=== PATIENT | female | born 1940 | race Hispanic/Latino ===

== ENCOUNTER 2017-10-23 23:00 | Inpatient (IN) | payer MEDICARE ==
[~2017-10-23] VITALS: Ht 154.9 cm; Wt 113.4 kg
[2017-10-23 23:47] LABS: BASOPHILS % 0.1 % (0.0-1.0); EOSINOPHILS # (AUTO) 0.2 (0.0-0.4); LYMPHOCYTES # (AUTO) 1.1 (1.0-3.2); LYMPHOCYTES % 16.7 % (18.0-39.1); MEAN CORPUSCULAR HEMOGLOBIN 25.1 pg (28-32); MEAN CORPUSCULAR HGB CONC 28.3 g/dL (31-35); MEAN CORPUSCULAR VOLUME 88.7 fL (81-99); MONOCYTES # (AUTO) 0.7 (0.2-0.8); MONOCYTES % 10.5 % (4.4-11.3); NEUTROPHILS # (AUTO) 4.7 (2.1-6.9); NEUTROPHILS % 69.1 % (38.7-80.0); PLATELET COUNT 235 x10e3/uL (140-360); RED BLOOD COUNT 2.31 x10e6/uL (3.6-5.1); RED CELL DISTRIBUTION WIDTH 16.3 % (11.7-14.4)
[2017-10-23 23:50] LABS: HEMATOCRIT 20.5 % (34.2-44.1); HEMOGLOBIN 5.8 g/dL (12.0-16.0)
[2017-10-23 23:58] LABS: INR 1.1; PROTHROMBIN TIME 13.4 seconds (11.9-14.5)
[2017-10-23 23:59] LABS: PARTIAL THROMBOPLASTIN TIME 29.2 seconds (23.8-35.5)
[2017-10-24] VITALS (7 sets, daily range): BP systolic 114–141; BP diastolic 58–79
[2017-10-24] MEDS ORDERED: SODIUM CHLORIDE 0.9% 250ML 250 ML IV ONE
[2017-10-24] MEDS ORDERED: FUROSEMIDE INJ 10 MG/ML 2 ML VIAL IV PRN
[2017-10-24 00:08] LABS: ALANINE AMINOTRANSFERASE 9 IU/L (0-55); ALBUMIN 3.3 g/dL (3.5-5.0); ALKALINE PHOSPHATASE 116 IU/L (40-150); ANION GAP 15.5 mmol/L (8-16); BLOOD UREA NITROGEN 52 mg/dL (7-26); BUN/CREATININE RATIO 24 (6-25); CALCIUM 9.1 mg/dL (8.4-10.2); CARBON DIOXIDE 21 mmol/L (22-29); CHLORIDE 109 mmol/L (98-107); CREATINE KINASE 45 IU/L (29-168); CREATININE, SERUM 2.17 mg/dL (0.57-1.11); EST GLOMERULAR FILTRATION RATE 22 ML/MIN (60-); GLUCOSE 161 mg/dL (74-118); MAGNESIUM 2.2 MG/DL (1.3-2.1); POTASSIUM 4.5 mmol/L (3.5-5.1); SODIUM 141 mmol/L (136-145)
[2017-10-24 00:28] LABS: THYROID STIMULATING HORMONE 5.277 uIU/mL (0.350-4.940)
[2017-10-24] MEDS ORDERED: PANTOPRAZOLE 40 MG 10ML VIAL IV STA (01:01)
[2017-10-24] MEDS ORDERED: ONDANSETRON HCL INJ 2 MG/ML VIAL IV PRN (01:15)
[2017-10-24] MEDS ORDERED: ACETAMINOPHEN 325 MG TAB PO PRN ×2 (01:15→10:45)
--- NOTE | 2017-10-24 01:47 | Diagnostic Imaging Report ---
EXAM: CHEST 2 VIEWS, PA and lateral INDICATION: Shortness of breath COMPARISON: None FINDINGS: LINES/TUBES: None LUNGS: No consolidations or edema. PLEURA: No effusions or pneumothorax. HEART AND MEDIASTINUM: The heart is mildly enlarged. Mild widening of the upper mediastinum is likely due to ectatic vasculature. BONES AND SOFT TISSUES: Large hiatal hernia. IMPRESSION: No acute cardiopulmonary abnormality. Large hiatal hernia. Signed by: Dr. Zaina Tinajero M.D. on 10/24/2017 1:43 AM
[2017-10-24 03:03] LABS: ANISOCYTOSIS SLIGHT; HYPOCHROMASIA MODERATE; PLATELET ESTIMATE ADEQUATE; PLATELET MORPHOLOGY COMMENT NORMAL; RBC MORPHOLOGY COMMENT ABNORMAL
[2017-10-24] MEDS ORDERED: SODIUM CHLORIDE 0.9% 250ML 250 ML ONE ×3 (04:28→11:36)
[2017-10-24] MEDS ORDERED: [UNRECOGNIZED DRUG - CODE] PO (07:31)
[2017-10-24] MEDS ORDERED: LASIX20 MG PO (07:31)
[2017-10-24] MEDS ORDERED: ACETAMINOPHEN325 M1 PO (07:31)
[2017-10-24] MEDS ORDERED: ATORVASTATIN CA20 MG PO (07:31)
[2017-10-24] MEDS ORDERED: RANITIDINE HCL300 MG PO (07:31)
[2017-10-24] MEDS ORDERED: MELOXICAM7.5 MG PO (07:31)
[2017-10-24] MEDS ORDERED: LISINOPRIL2.5 MG PO (07:31)
[2017-10-24] MEDS ORDERED: LASIX40 MG PO (07:31)
[2017-10-24 07:45] LABS: CLARITY,URINE CLOUDY (CLEAR); COLOR,URINE YELLOW (YELLOW)
[2017-10-24 07:46] LABS: BILIRUBIN,URINE NEGATIVE (NEGATIVE); KETONES,URINE NEGATIVE (NEGATIVE); LEUKOCYTE ESTERASE ,URINE 1+ (NEGATIVE); NITRITE,URINE NEGATIVE (NEGATIVE); PROTEIN,URINE DIPSTICK NEGATIVE (NEGATIVE); URINE UROBILINOGEN 0.2 mg/dL (0.2 - 1)
[2017-10-24 08:01] LABS: BACTERIA,URINE MANY /HPF; WBC,URINE (MAN) 21-50 /HPF (0-5)
[2017-10-24 08:02] LABS: EPITHELIAL CELLS,URINE FEW /LPF
[2017-10-24 08:55] LABS: CREATININE,URINE RANDOM 78.03 mg/dL (47-110)
[2017-10-24 08:56] LABS: TOTAL PROTEIN, URINE < 6.8 mg/dL (1-14)
[2017-10-24] MEDS ORDERED: IRON DEXTRAN INJ 50 MG in SODIUM CHLORIDE 0.9% 100 ML IV ONE (09:30)
[2017-10-24] MEDS ORDERED: FAMOTIDINE INJ 20 MG in SODIUM CHLORIDE 0.9% 50ML 50 ML IV ONE ×2 (09:30→09:45)
[2017-10-24] MEDS ORDERED: DEXAMETHASONE PHOS 10MG INJ 20 MG in SODIUM CHLORIDE 0.9% 50ML 50 ML IV ONE (09:30)
[2017-10-24] MEDS ORDERED: EPOETIN ALFA 10000 UNIT/ML VIAL SC SCH (09:30)
[2017-10-24] MEDS ORDERED: DIPHENHYDRAMINE HCL INJ 25 MG in SODIUM CHLORIDE 0.9% 50ML 50 ML IV ONE ×2 (09:30→09:45)
[2017-10-24] MEDS ORDERED: IRON DEXTRAN INJ 500 MG in SODIUM CHLORIDE 0.9% 500ML 500 ML IV PRN (09:30)
[2017-10-24] MEDS ORDERED: DIATRIZOATE MEGL/DIATRIZOA SOD 30 ML BTL PO ONE (09:31)
[2017-10-24] MEDS ORDERED: FUROSEMIDE INJ 10 MG/ML 4 ML VIAL IV ONE (10:00)
[2017-10-24] MEDS: PANTOPRAZOLE 40 MG 10ML VIAL IV SCH (10:20)
--- NOTE | 2017-10-24 10:42 | Consultation ---
DATE OF CONSULTATION: October 24, 2017 Ms. Scherer is a 77-year-old female who has been referred to me for evaluation of anemia. No history of hematochezia, melena, hematuria, hematemesis, or hemoptysis. The patient has been feeling weak for a few months. History has been obtained by my personal communication along with a Malay speaking nurse, who I took with me as it is extremely important that a female patient should not be examined by a male doctor unless you have a female nurse with you. Most of the information was also obtained with the son and the son's . SOCIAL HISTORY: Noncontributory. FAMILY HISTORY: Noncontributory. ALLERGIES: REPORTED NONE. MEDICATIONS: At this time consist of: 1. Lasix. 2. Ondansetron. 3. Protonix. REVIEW OF SYSTEMS HEENT: Normal. CARDIAC: Normal. RESPIRATORY: Normal. GI: Normal. : Normal. MUSCULOSKELETAL: Normal. SKIN AND BREASTS: Normal. NEUROENDOCRINE: At the present time, is showing hypothyroidism. PHYSICAL EXAMINATION GENERAL: A rather obese female very anemic and bed confined. No palpable adenopathy. HEART: Within normal limits. LUNGS: Few crepitations. BREASTS: Deferred at request. ABDOMEN: Obese. RECTAL: Vaginal exams could not be done. CENTRAL NERVOUS SYSTEM: Could not be done. Two plus pitting edema of the feet. Hemoglobin of 5.8, hematocrit 20.5, MCV 88.7, MCHC low at 28.3, high RDW of 16.3. White count 6700 and platelets of 235,000. Chemistry shows a sodium of 141, potassium 4.5, chloride 109, CO2 21, BUN 52, creatinine 2.1, glucose 161. Calcium 9.1. Magnesium high at 2.2. Bilirubin 0.3, SGOT 10, SGPT 9, alkaline phosphatase 116. BNP high at 173.3. Total protein is 3.5, albumin 3.3, globulin 3.2, and a high TSH of 5.27. Chest x-ray shows hiatus hernia. IMPRESSION 1. Iron deficiency anemia. 2. Hiatus hernia. 3. Chronic renal failure. 4. Hypoalbuminemia. 5. Hypothyroidism. 6. 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 7. Possible gastrointestinal blood loss. 8. Morbid obesity. 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 B12 level is highly suggested. The patient will be given Infed. A CT scan of the abdomen and pelvis without contrast is to be done to make sure there is no other underlying pathology as the cause of iron deficiency anemia. GI consultation is suggested. Nephrology consultation is suggested. Procrit and Infed will be given. I will calculate out the amount of Infed to be given. This will be divided monthly according to the normal gram. Thank you very much for allowing me to participate in the management of this patient. I will confine myself to hematology. Job#: [id number] RI cc:MD ACROLA YUSUF MD
[2017-10-24] MEDS ORDERED: [UNRECOGNIZED DRUG - OTHER] PO SCH (10:45)
--- NOTE | 2017-10-24 12:39 | Diagnostic Imaging Report ---
PROCEDURE:ABDOMINAL ULTRASOUND COMPARISON:None. INDICATIONS:ABDOMEN PAIN FINDINGS: Exam somewhat limited due to patient body habitus and bowel gas. Liver: Measures 14.4 cm. The liver is hyperechoic. No focal mass. Main portal vein: 0.9 cm. Hepatopedal flow. Gallbladder: Status post cholecystectomy. Common Bile Duct: Measures 0.6 cm. No echogenic filling defect. Sonographic Smart's sign: Negative. Right kidney: Measures 9.1 cm. No solid or cystic mass, echogenic calculi, or hydronephrosis. Normal parenchymal echogenicity. Left kidney: Measures 8.8 cm. No solid mass, echogenic calculi, or hydronephrosis. Normal parenchymal echogenicity. There are three simple appearing anechoic cysts in the left kidney: 1) measuring up to 3.6 cm in the inferior pole laterally; 2) measuring up to 1.9 cm in the inferior pole laterally; and 3) measuring up to 2.9 cm in the mid pole medially. Spleen: Measures 10.3 cm. Pancreas: Limited visualization due to overlying bowel gas. Inferior vena cava: Visualized portions are unremarkable. Aorta: Limited visualization due to overlying bowel gas. Ascites: None. CONCLUSION: Fatty liver. Simple left renal cysts. Dictated by: STEPHANIE ZARATE M.D. on 10/24/2017 at 12:45 Electronically approved by: STEPHANIE ZARATE M.D. on 10/24/2017 at 12:45
--- NOTE | 2017-10-24 13:07 | Diagnostic Imaging Report ---
PROCEDURE: CT ABDOMEN AND PELVIS WITHOUT CONTRAST TECHNIQUE: The abdomen and pelvis were scanned utilizing a multidetector helical scanner from the diaphragm to the lesser trochanter after the oral administration of 900 cc of gastrograffin and water. No IV contrast was administered per request. Coronal and sagittal multiplanar reformations were obtained. COMPARISON: None. INDICATIONS: ANEMIA FINDINGS: ABSENCE OF INTRAVENOUS CONTRAST DECREASES SENSITIVITY FOR DETECTION OF FOCAL LESIONS AND VASCULAR PATHOLOGY. LOWER THORAX: Motion limits evaluation. Multifocal patchy dependent atelectasis. Large hiatal hernia. HEPATOBILIARY: No focal hepatic lesions. No biliary ductal dilatation. SPLEEN: No splenomegaly. PANCREAS: No focal masses or ductal dilatation. ADRENALS: No adrenal nodules. KIDNEYS/URETERS: No hydronephrosis, stones, or solid mass lesions. Bilateral simple renal cysts are present. PELVIC ORGANS/BLADDER: Unremarkable. PERITONEUM / RETROPERITONEUM: No free air or fluid. LYMPH NODES: No lymphadenopathy. VESSELS: Aortic atherosclerotic calcifications. GI TRACT: No distention. Normal appendix. Sigmoid diverticulosis without CT evidence of diverticulitis. Apparent asymmetric wall thickening is seen in the distal rectum on series 2, image 72. BONES AND SOFT TISSUES: Unremarkable. IMPRESSION: Asymmetric wall thickening in the distal rectum. This may reflect underdistention, however an underlying mass is also possible in the setting of anemia. Suggest correlation with age appropriate colorectal cancer screening. Dictated by: STEPHANIE ZARATE M.D. on 10/24/2017 at 13:13 Electronically approved by: STEPHANIE ZARATE M.D. on 10/24/2017 at 13:13
[2017-10-24 14:16] LABS: BASOPHILS % 0.3 % (0.0-1.0); EOSINOPHILS # (AUTO) 0.2 (0.0-0.4); EOSINOPHILS % 2.5 % (0.0-6.0); HEMATOCRIT 24.9 % (34.2-44.1); HEMOGLOBIN 7.8 g/dL (12.0-16.0); LYMPHOCYTES # (AUTO) 0.8 (1.0-3.2); LYMPHOCYTES % 10.1 % (18.0-39.1); MEAN CORPUSCULAR HEMOGLOBIN 26.5 pg (28-32); MEAN CORPUSCULAR HGB CONC 31.3 g/dL (31-35); MEAN CORPUSCULAR VOLUME 84.7 fL (81-99); MONOCYTES # (AUTO) 0.7 (0.2-0.8); MONOCYTES % 8.5 % (4.4-11.3); NEUTROPHILS % 77.7 % (38.7-80.0); PLATELET COUNT 219 x10e3/uL (140-360); RED BLOOD COUNT 2.94 x10e6/uL (3.6-5.1); RED CELL DISTRIBUTION WIDTH 16.6 % (11.7-14.4)
[2017-10-24 14:36] LABS: ALBUMIN 3.2 g/dL (3.5-5.0); ALBUMIN/GLOBULIN RATIO 1.1 (0.8-2.0); ANION GAP 14.3 mmol/L (8-16); CREATININE, SERUM 1.8 mg/dL (0.57-1.11); POTASSIUM 4.3 mmol/L (3.5-5.1)
--- NOTE | 2017-10-24 16:05 | Consultation ---
DATE OF CONSULTATION: October 24, 2017 Ms. Natalie Scherer is a 77-year-old female Guyanese speaking only. 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 Most of the history, exam and explanation done via Guyanese translation. She came in basically with anemia. Has iron deficiency. Initial hemoglobin was 5.8. Currently, received packed RBC transfusion. Repeat hemoglobin is 7.8. Renal consult for abnormal kidney function. Serum creatinine 2.17. The patient denies prior history of any renal insufficiency or kidney stone disease. PAST MEDICAL HISTORY: History of diabetes, diabetic retinopathy. She had complication from left eye surgery and has a left corneal opacification. 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 Workup here shows abdominal CT and pelvis, as well as an abdominal ultrasound shows 9.1 and 8.8 cm kidney with bilateral simple renal cysts. Please see full report. CT scan of the abdomen was also done and shows asymmetric wall thickening of the distal rectum. No splenomegaly. This was a noncontrast study. CURRENT MEDICATIONS: Patient on lisinopril, pantoprazole, furosemide 20 mg once a day, ergocalciferol, atorvastatin, and Tylenol p.r.n., iron, dextran, and diphenhydramine. SOCIAL HISTORY: Does not smoke or drink. PHYSICAL EXAMINATION GENERAL: Awake, alert and laying supine. No apparent distress. VITALS: Blood pressure 121/59, pulse rate 70 and afebrile. HEAD AND NECK: Cornea clear and oral mucosa are dry. NECK: Veins are flat. LUNGS: Relatively clear. HEART: S1 and S2 audible. ABDOMEN: Otherwise soft and nontender. EXTREMITIES: Lower extremities with no edema. IMPRESSION AND PLAN 1. Anemia, iron deficiency: Must rule out gastrointestinal bleed. 2. Underlying acute kidney injury. 3. Possible underlying chronic kidney disease, stage 3, possibly due to hypertensive and diabetic nephrosclerosis. Kidney ultrasound noted. Abdominal CT noted. Discussed with RN. Spot urine protein and creatinine ratio sent. Urinalysis sent. Will monitor the patient's kidney function and urine output with you. At the moment, will hold off lisinopril and Lasix. Discussed with the patient. Discussed with RN. Job#: [id number] SRIDEVI
[2017-10-24] MEDS ORDERED: BRIMONIDINE TART5 ML OP (19:17)
[2017-10-24] MEDS ORDERED: LUMIGAN2.5 M1 OP (19:17)
[2017-10-24] MEDS: ATORVASTATIN 20 MG TAB PO SCH (20:50)
[2017-10-24] MEDS ORDERED: FUROSEMIDE 20 MG TAB PO SCH (21:00)
[2017-10-24] MEDS ORDERED: PEG (High)/E-LYTE SOLN 4,000 ML BTL PO ONE (21:00)
[2017-10-24] MEDS ORDERED: BISACODYL 5 MG TAB EC PO ONE (21:00)
--- NOTE | 2017-10-24 22:16 | Consultation ---
DATE OF CONSULTATION: October 24, 2017 HISTORY: This is 77-year-old who was admitted to the hospital initially because of shortness of breath and generalized weakness. Patient was found to have significant anemia. Hemoglobin was 5.8. She also has hemoccult-positive stool. She did have a CAT scan of the abdomen and pelvis which shows evidence of rectal wall thickening, possibly rectal mass. OTHER MEDICAL PROBLEMS: Significant for history of chronic renal failure, hypoalbuminemia, history of obesity. ALLERGIES: NONE. CURRENT MEDICATIONS: Including iron, pantoprazole, , Lasix. SOCIAL HISTORY: No alcohol use. FAMILY HISTORY: Noncontributory. REVIEW OF SYSTEMS: Denies any chest pain or shortness of breath. Denies any dysphagia or odynophagia. Denies any dysuria, hematuria or any kind of syncopal episodes. PHYSICAL EXAMINATION: GENERAL: Patient is awake, alert, appeared to be stable, not in acute distress at this point. VITAL SIGNS: Afebrile currently with stable vital signs. HEAD, EYES, EARS, NOSE, AND THROAT: Normocephalic, atraumatic. Sclerae are anicteric. NECK: Supple. HEART: Regular. ABDOMEN: Soft. There is no tenderness at this point. It is nontender. EXTREMITIES: No clubbing. LAB VALUES: Hemoccult positive. WBC of 7.7, hemoglobin 7.8, hematocrit 24.7. PT and INR are normal. Chemistry: BUN 47, creatinine 1.8, and hemoccult-positive stool. CAT scan as mentioned before. Ultrasound, there is fatty liver. IMPRESSION: 1. Anemia with hemoccult-positive stool. There is thickening in the wall of the rectum. 2. Renal insufficiency. RECOMMENDATIONS: We will proceed with EGD and colonoscopy for further evaluation tomorrow and follow labs and clinically. Job#: [id number] cc:TENZIN PERRY MD
[2017-10-25] VITALS: BP 145/64
[2017-10-25 04:00] VITALS: BP 132/60
[2017-10-25 06:14] LABS: HEMATOCRIT 25.9 % (34.2-44.1); LYMPHOCYTES # (AUTO) 0.6 (1.0-3.2); LYMPHOCYTES % 9.7 % (18.0-39.1); MEAN CORPUSCULAR HEMOGLOBIN 26.1 pg (28-32); MEAN CORPUSCULAR HGB CONC 30.9 g/dL (31-35); MEAN CORPUSCULAR VOLUME 84.6 fL (81-99); MONOCYTES # (AUTO) 0.2 (0.2-0.8); NEUTROPHILS # (AUTO) 5.4 (2.1-6.9); PLATELET COUNT 221 x10e3/uL (140-360); RED BLOOD COUNT 3.06 x10e6/uL (3.6-5.1)
[2017-10-25 06:35] LABS: ALBUMIN 3.1 g/dL (3.5-5.0); ANION GAP 14.2 mmol/L (8-16); CHOL/HDL RATIO 3.9 (3.0-3.6); CREATININE, SERUM 1.55 mg/dL (0.57-1.11); POTASSIUM 4.2 mmol/L (3.5-5.1)
[2017-10-25 06:42] LABS: CREATINE KINASE MB 1.4 ng/mL (0-5.0)
[2017-10-25 08:06] VITALS: BP 123/65
[2017-10-25] MEDS: PANTOPRAZOLE 40 MG 10ML VIAL IV SCH (08:06)
[2017-10-25] MEDS: FAMOTIDINE 20 MG TAB PO SCH (08:06)
[2017-10-25 08:10] VITALS: BP 123/65
[2017-10-25] MEDS ORDERED: FUROSEMIDE 40 MG TAB PO SCH (09:00)
[2017-10-25] MEDS ORDERED: BRIMONIDINE TARTRATE (OPTH) 5 ML LIQD OP SCH (09:00)
[2017-10-25] MEDS ORDERED: NON-FORMULARY MEDICATION (Ranitidine Hcl 300 MG) PO SCH (09:00)
[2017-10-25] MEDS ORDERED: LISINOPRIL 2.5 MG TAB PO SCH (09:00)
[2017-10-25 16:06] VITALS: BP 115/55
[2017-10-25] MEDS ORDERED: LIDOCAINE HCL 2% LOCAL INJ 5 ML SDV VIAL INJ ONE (17:47)
[2017-10-25] MEDS ORDERED: PROPOFOL IV EMULSION 10 MG/ML 20 ML VIAL ONE (17:47)
[2017-10-25] MEDS ORDERED: FENTANYL CITRATE/PF 100MCG/2 ML INJ ONE (18:00)
[2017-10-25] MEDS ORDERED: MIDAZOLAM HCL 2 MG/2 ML VIAL ONE (18:00)
[2017-10-25 20:00] VITALS: BP 103/55
[2017-10-25] MEDS: ATORVASTATIN 20 MG TAB PO SCH (20:38)
[2017-10-25] MEDS: BRIMONIDINE TARTRATE (OPTH) 5 ML LIQD OP SCH (20:38)
[2017-10-25] MEDS ORDERED: BIMATOPROST(OPTH) 2.5 ML BOTTLE OP SCH (21:00)
[2017-10-26] VITALS: BP 117/56
[2017-10-26 04:00] VITALS: BP 115/56
[2017-10-26] MEDS ORDERED: CEFTRIAXONE SOD 1 GM VIAL IV SCH (05:00)
[2017-10-26 06:00] LABS: BASOPHILS % 0.3 % (0.0-1.0); EOSINOPHILS # (AUTO) 0.1 (0.0-0.4); EOSINOPHILS % 0.7 % (0.0-6.0); LYMPHOCYTES # (AUTO) 1.4 (1.0-3.2); MEAN CORPUSCULAR HEMOGLOBIN 26.1 pg (28-32); MEAN CORPUSCULAR HGB CONC 29.6 g/dL (31-35); MEAN CORPUSCULAR VOLUME 88.2 fL (81-99); MONOCYTES % 9.8 % (4.4-11.3); NEUTROPHILS # (AUTO) 7.8 (2.1-6.9); NEUTROPHILS % 74.9 % (38.7-80.0); PLATELET COUNT 230 x10e3/uL (140-360); RED BLOOD COUNT 3.06 x10e6/uL (3.6-5.1); RED CELL DISTRIBUTION WIDTH 17.3 % (11.7-14.4)
[2017-10-26 06:13] LABS: ALBUMIN 3.3 g/dL (3.5-5.0); ALBUMIN/GLOBULIN RATIO 1.1 (0.8-2.0); ANION GAP 15.3 mmol/L (8-16); CALCIUM 9.4 mg/dL (8.4-10.2); CREATININE, SERUM 1.67 mg/dL (0.57-1.11); POTASSIUM 4.3 mmol/L (3.5-5.1)
[2017-10-26] MEDS: PANTOPRAZOLE 40 MG 10ML VIAL IV SCH (07:35)
[2017-10-26] MEDS: FAMOTIDINE 20 MG TAB PO SCH (07:35)
[2017-10-26 08:00] VITALS: BP 135/56
[2017-10-26 08:10] VITALS: BP 135/56
[2017-10-26] MEDS: BRIMONIDINE TARTRATE (OPTH) 5 ML LIQD OP SCH (09:00)
[2017-10-26 12:00] VITALS: BP 128/61
[2017-10-26] MEDS ORDERED: CIPRO500 MG PO (15:32)
[2017-10-26 16:00] VITALS: BP 109/51
[2017-10-29] MEDS ORDERED: ERGOCALCIFEROL 50,000 UNIT CAP PO SCH (09:00)
== END 2017-10-26 18:09 | disposition home or self-care (01) | DRG 812 ==
LOC: ER 23:00 → ERHOLD 10-24 01:46 → MED/SURG3 10-24 03:00
PROVIDERS: ADMIT Internal Medicine; ATTEND Internal Medicine
PROC: 30233N1 Transfusion of Nonautologous Red Blood Cells into Peripheral Vein, Percutaneous Approach (ICD-10-PCS; 2017-10-24)
PROC: 0DJD8ZZ Inspection of Lower Intestinal Tract, Via Natural or Artificial Opening Endoscopic (ICD-10-PCS; principal; 2017-10-25 11:00)
PROC: 0DB78ZX Excision of Stomach, Pylorus, Via Natural or Artificial Opening Endoscopic, Diagnostic (ICD-10-PCS; 2017-10-25 11:00)
DX: D50.9 Iron deficiency anemia, unspecified (principal); K92.2 Gastrointestinal hemorrhage, unspecified; N17.9 Acute kidney failure, unspecified; Z68.42 Body mass index [BMI] 45.0-49.9, adult; N39.0 Urinary tract infection, site not specified; I12.9 Hypertensive chronic kidney disease with stage 1 through stage 4 chronic kidney disease, or unspecified chronic kidney disease; N18.3 Chronic kidney disease, stage 3 (moderate); E11.22 Type 2 diabetes mellitus with diabetic chronic kidney disease; K44.9 Diaphragmatic hernia without obstruction or gangrene; E66.01 Morbid (severe) obesity due to excess calories; E03.9 Hypothyroidism, unspecified; Z79.52 Long term (current) use of systemic steroids; E78.5 Hyperlipidemia, unspecified; D63.1 Anemia in chronic kidney disease; K76.0 Fatty (change of) liver, not elsewhere classified; K29.70 Gastritis, unspecified, without bleeding; Z79.4 Long term (current) use of insulin
CPT/HCPCS: 36415; 43239; 45378; 71046; 74176; 76700; 80053; 80061; 81001; 82270; 82378; 82550; 82553; 82570; 82607; 82948; 83036; 83735; 83880; 84156; 84443; 84484; 85025; 85045; 85610; 85730; 86850; 86900; 86920; 87086; 87186; 88305; 88312; 93306; 99284; J0696; J1100; J1200; J1750; J1940; J2001; J2250; J7040; J7050; P9016; Q4081

== ENCOUNTER → 2017-12-07 | Outpatient (CLI) | payer MEDICARE ==
[~2017-12-07] MED LIST: ACETAMINOPHEN325 M1 PO; ATORVASTATIN CA20 MG PO; BRIMONIDINE TART5 ML OP; CIPRO500 MG PO; DIATRIZOATE MEGL/DIATRIZOA SOD 30 ML BTL PO ONE; LASIX20 MG PO; LASIX40 MG PO; LISINOPRIL2.5 MG PO; LUMIGAN2.5 M1 OP; MELOXICAM7.5 MG PO; RANITIDINE HCL300 MG PO; [UNRECOGNIZED DRUG - CODE] PO
[2017-12-07 12:03] LABS: CREATININE, SERUM 1.3 mg/dL (0.57-1.11)
--- NOTE | 2017-12-07 15:06 | Diagnostic Imaging Report ---
EXAM: CT Abdomen and Pelvis WITHOUT contrast INDICATION: \[id number] \S\[id number] \S\GASTRITIS/HERNIA/CONSTIPATION/DIVER COMPARISON: None. TECHNIQUE: Abdomen and pelvis were scanned utilizing a multidetector helical scanner from the lung base to the pubic symphysis without administration of IV contrast. Absence of intravenous contrast decreases sensitivity for detection of focal lesions and vascular pathology. Coronal and sagittal reformations were obtained. Routine protocol was performed. IV CONTRAST: None. ORAL CONTRAST: Water RADIATION DOSE: Total DLP: 760.3 mGy*cm Estimated effective dose: (DLP x 0.015 x size factor) mSv COMPLICATIONS: None FINDINGS: LINES and TUBES: None. LOWER THORAX: Groundglass opacities in both lung bases may represent dependent atelectasis. Moderate hiatal hernia. No outlet obstruction of the stomach. HEPATOBILIARY: No focal hepatic lesions. No biliary ductal dilation. GALLBLADDER: No radio-opaque stones or sludge. No wall thickening. SPLEEN: No splenomegaly. PANCREAS: No focal masses or ductal dilatation. ADRENALS: No adrenal nodules KIDNEYS/URETERS: No hydronephrosis. No cystic or solid mass lesions. No stones. GI TRACT: No abnormal distention, wall thickening, or evidence of bowel obstruction. Diffuse diverticulosis of the sigmoid colon. Appendix is normal. PELVIC ORGANS/BLADDER: The urinary bladder is unremarkable. The uterus is not visualized. LYMPH NODES: No lymphadenopathy. VESSELS: Unremarkable. PERITONEUM / RETROPERITONEUM: No free air or fluid. BONES: Unremarkable. SOFT TISSUES: Unremarkable. IMPRESSION: 1. Moderate hiatal hernia without obstruction. 2. Diverticulosis of the sigmoid colon without diverticulitis. Signed by: Dr. Kimberly Isaac M.D. on 12/07/2017 3:03 PM
== END ==
LOC: CT 10:38
PROVIDERS: ATTEND Internal Medicine Gastroenterology
DX: K29.00 Acute gastritis without bleeding (principal); K44.9 Diaphragmatic hernia without obstruction or gangrene; K59.00 Constipation, unspecified; K57.30 Diverticulosis of large intestine without perforation or abscess without bleeding; E66.01 Morbid (severe) obesity due to excess calories; Z71.3 Dietary counseling and surveillance; Z87.891 Personal history of nicotine dependence
CPT/HCPCS: 36415; 74176; 82565; 84520

== ENCOUNTER 2020-09-03 14:56 | Emergency (ER) | payer MEDICARE, OTHER ==
[~2020-09-03] VITALS: Ht 154.9 cm; Wt 113.4 kg
[~2020-09-03 14:56] MED LIST changes: -DIATRIZOATE MEGL/DIATRIZOA SOD 30 ML BTL PO ONE
[2020-09-03 15:38] LABS: BASOPHILS % 0.5 % (0.0-1.0); EOSINOPHILS # (AUTO) 0.1 (0.0-0.4); EOSINOPHILS % 2.1 % (0.0-6.0); HEMATOCRIT 42.2 % (34.2-44.1); HEMOGLOBIN 12.9 g/dL (12.0-16.0); LYMPHOCYTES # (AUTO) 1.3 (1.0-3.2); LYMPHOCYTES % 19.1 % (18.0-39.1); MEAN CORPUSCULAR HEMOGLOBIN 27.2 pg (28-32); MEAN CORPUSCULAR HGB CONC 30.6 g/dL (31-35); MEAN CORPUSCULAR VOLUME 88.8 fL (81-99); MONOCYTES # (AUTO) 0.6 (0.2-0.8); MONOCYTES % 9.5 % (4.4-11.3); NEUTROPHILS # (AUTO) 4.5 (2.1-6.9); NEUTROPHILS % 68.3 % (38.7-80.0); PLATELET COUNT 167 x10e3/uL (140-360); RED BLOOD COUNT 4.75 x10e6/uL (3.6-5.1); RED CELL DISTRIBUTION WIDTH 15.3 % (11.7-14.4)
[2020-09-03 15:57] LABS: ALANINE AMINOTRANSFERASE 12 IU/L (0-55); ALBUMIN 3.8 g/dL (3.5-5.0); ALBUMIN/GLOBULIN RATIO 1.2 (0.8-2.0); ALKALINE PHOSPHATASE 134 IU/L (40-150); ANION GAP 15.5 mmol/L (8-16); BLOOD UREA NITROGEN 25 mg/dL (7-26); BUN/CREATININE RATIO 19 (6-25); CALCIUM 9.1 mg/dL (8.4-10.2); CARBON DIOXIDE 22 mmol/L (22-29); CHLORIDE 107 mmol/L (98-107); CREATINE KINASE 71 IU/L (29-168); CREATININE, SERUM 1.29 mg/dL (0.57-1.11); EST GLOMERULAR FILTRATION RATE 40 ML/MIN (60-); GLUCOSE 111 mg/dL (74-118); POTASSIUM 4.5 mmol/L (3.5-5.1); SODIUM 140 mmol/L (136-145)
[2020-09-03 17:57] LABS: CLARITY,URINE CLEAR (CLEAR); COLOR,URINE YELLOW (YELLOW); KETONES,URINE NEGATIVE (NEGATIVE); LEUKOCYTE ESTERASE ,URINE MODERATE (NEGATIVE); NITRITE,URINE NEGATIVE (NEGATIVE); PROTEIN,URINE DIPSTICK NEGATIVE (NEGATIVE); URINE UROBILINOGEN 0.2 mg/dL (0.2 - 1)
[2020-09-03] MEDS ORDERED: KEFLEX125 MG/5 M PO (18:03)
[2020-09-03 18:08] LABS: BACTERIA,URINE MANY /HPF; EPITHELIAL CELLS,URINE FEW /LPF
== END 2020-09-03 18:58 | disposition home or self-care (01) ==
LOC: ER 15:30
DX: R53.1 Weakness (principal); R53.83 Other fatigue; I10 Essential (primary) hypertension; E78.5 Hyperlipidemia, unspecified; K21.9 Gastro-esophageal reflux disease without esophagitis; M79.89 Other specified soft tissue disorders; D64.9 Anemia, unspecified
CPT/HCPCS: 36415; 70450; 80053; 81001; 81025; 82550; 82553; 83880; 84484; 85025; 86850; 86900; 99284; U0002

== ENCOUNTER 2023-08-18 18:54 | Inpatient (IN) | payer MEDICARE, OTHER ==
[~2023-08-18] VITALS: Ht 154.9 cm; Wt 103.9 kg
[~2023-08-18 18:54] MED LIST changes: +KEFLEX125 MG/5 M PO
[2023-08-18 21:59] LABS: BASOPHILS % 0.2 % (0.0-1.0); EOSINOPHILS % 0.1 % (0.0-6.0); HEMATOCRIT 38.5 % (34.2-44.1); HEMOGLOBIN 13.2 g/dL (12.0-16.0); LYMPHOCYTES # (AUTO) 0.7 (1.0-3.2); LYMPHOCYTES % 4.5 % (18.0-39.1); MEAN CORPUSCULAR HEMOGLOBIN 31.4 pg (28-32); MEAN CORPUSCULAR HGB CONC 34.3 g/dL (31-35); MEAN CORPUSCULAR VOLUME 91.7 fL (81-99); MONOCYTES # (AUTO) 1.2 (0.2-0.8); MONOCYTES % 7.6 % (4.4-11.3); NEUTROPHILS # (AUTO) 14.2 (2.1-6.9); NEUTROPHILS % 86.9 % (38.7-80.0); PLATELET COUNT 152 x10e3/uL (140-360); RED CELL DISTRIBUTION WIDTH 13.1 % (11.7-14.4); WHITE BLOOD COUNT 16.31 x10e3/uL (4.8-10.8)
[2023-08-18 22:15] LABS: INFLUENZAE A&B ANTIGEN (RAPID) NEGATIVE (NEGATIVE)
[2023-08-18 22:16] LABS: RESPIRATORY SYNC. VIRUS NEGATIVE (NEGATIVE)
[2023-08-18 22:24] LABS: ALBUMIN/GLOBULIN RATIO 0.8 (0.8-2.0); ANION GAP 16.3 mmol/L (8-16); BILIRUBIN,TOTAL 1.3 mg/dL (0.2-1.2); CALCIUM 8.8 mg/dL (8.4-10.2); CREATININE, SERUM 1.47 mg/dL (0.57-1.11); POTASSIUM 4.3 mmol/L (3.5-5.1); TOTAL PROTEIN 6.9 g/dL (6.5-8.1)
[2023-08-18 22:30] LABS: TROPONIN I 0.015 ng/mL (0-0.300)
[2023-08-18 22:50] LABS: BILIRUBIN,URINE NEGATIVE (NEGATIVE); CLARITY,URINE CLOUDY (CLEAR); COLOR,URINE YELLOW (YELLOW); GLUCOSE, URINE NEGATIVE (NEGATIVE); KETONES,URINE NEGATIVE (NEGATIVE); LEUKOCYTE ESTERASE ,URINE 2+ (NEGATIVE); NITRITE,URINE POSITIVE (NEGATIVE); PH,URINE 6 (5 - 7); PROTEIN,URINE DIPSTICK 2+ (NEGATIVE); URINE UROBILINOGEN 0.2 mg/dL (0.2 - 1)
[2023-08-18 22:57] LABS: BACTERIA,URINE MANY /HPF; EPITHELIAL CELLS,URINE MANY /LPF; RBC,URINE >50 /HPF (0-5); WBC,URINE (MAN) >50 /HPF (0-5)
[2023-08-18 22:58] LABS: RENAL EPITHELIAL CELLS,URINE FEW
[2023-08-18] MEDS: SODIUM CHLORIDE 0.9% 1000ML 1,000 ML IV ONE (23:09)
[2023-08-19] VITALS (19 sets, daily range): BP systolic 81–126; BP diastolic 42–95; PULSE 54–123; RESP 16–27; TEMP 98.4–98.9; O2SAT 90–98
[2023-08-19] MEDS: METOPROLOL TARTRATE INJ 1 MG/ML VIAL IV ONE (00:24)
[2023-08-19] MEDS ORDERED: ONDANSETRON HCL INJ 2MG/ML 2ML 2 MG/ML VIAL IV PRN (00:30)
[2023-08-19] MEDS: SODIUM CHLORIDE 0.9% 1000ML 1,000 ML IV ONE (00:36)
[2023-08-19] MEDS: AMIODARONE HCL 150 MG/100 ML BAG IV ONE (04:35)
[2023-08-19] MEDS: AMIODARONE 900MG 500 ML IV SCH (04:37)
[2023-08-19 08:32] LABS: TROPONIN I 0.019 ng/mL (0-0.300)
[2023-08-19] MEDS ORDERED: SIMETHICONE 80 MG CHEW PO PRN (11:15)
[2023-08-19] MEDS ORDERED: METOPROLOL TARTRATE INJ 1 MG/ML VIAL IV PRN (11:15)
[2023-08-19] MEDS ORDERED: ALBUTEROL/IPRATROPIUM 3 ML NEB NEB PRN (11:15)
[2023-08-19] MEDS: METOPROLOL TARTRATE 25 MG TAB PO SCH (12:35)
[2023-08-19 14:49] LABS: ANION GAP 18.1 mmol/L (8-16); CALCIUM 8.6 mg/dL (8.4-10.2); CREATININE, SERUM 1.31 mg/dL (0.57-1.11); POTASSIUM 4.1 mmol/L (3.5-5.1)
[2023-08-19 15:12] LABS: BASOPHILS % 0.1 % (0.0-1.0); HEMATOCRIT 35.8 % (34.2-44.1); LYMPHOCYTES # (AUTO) 0.5 (1.0-3.2); LYMPHOCYTES % 2.9 % (18.0-39.1); MEAN CORPUSCULAR HEMOGLOBIN 31.6 pg (28-32); MEAN CORPUSCULAR HGB CONC 33.5 g/dL (31-35); MEAN CORPUSCULAR VOLUME 94.2 fL (81-99); MONOCYTES # (AUTO) 1.4 (0.2-0.8); MONOCYTES % 7.2 % (4.4-11.3); NEUTROPHILS # (AUTO) 16.7 (2.1-6.9); NEUTROPHILS % 88.6 % (38.7-80.0); PLATELET COUNT 143 x10e3/uL (140-360); RED CELL DISTRIBUTION WIDTH 13.2 % (11.7-14.4); WHITE BLOOD COUNT 18.85 x10e3/uL (4.8-10.8)
[2023-08-19 15:18] LABS: CHOL/HDL RATIO 2.6 (3.0-3.6)
[2023-08-19 15:34] LABS: TROPONIN I 0.018 ng/mL (0-0.300)
[2023-08-19 15:38] LABS: THYROID STIMULATING HORMONE 0.75 uIU/mL (0.350-4.940)
[2023-08-19] MEDS ORDERED: LISINOPRIL10 MG PO (16:34)
[2023-08-19] MEDS ORDERED: LEVOTHYROXINE88 MCG PO (16:34)
[2023-08-19] MEDS ORDERED: BUMETANIDE0.5 MG PO (16:34)
[2023-08-19] MEDS ORDERED: FEROSUL325 MG PO (16:34)
[2023-08-19] MEDS: ATORVASTATIN 20 MG TAB PO SCH (20:03)
[2023-08-19] MEDS: ENOXAPARIN SOD INJ 40 MG/0.4 ML SYR SC STA (20:03)
[2023-08-19] MEDS: BIMATOPROST(OPTH) 2.5 ML BOTTLE OP SCH (20:33)
[2023-08-20] VITALS (32 sets, daily range): BP systolic 78–147; BP diastolic 47–81; PULSE 55–114; RESP 17–26; TEMP 97–98.5; O2SAT 92–100
[2023-08-20 07:38] LABS: BASOPHILS % 0.1 % (0.0-1.0); EOSINOPHILS % 0.2 % (0.0-6.0); HEMATOCRIT 36.8 % (34.2-44.1); HEMOGLOBIN 11.6 g/dL (12.0-16.0); LYMPHOCYTES # (AUTO) 0.7 (1.0-3.2); LYMPHOCYTES % 5.2 % (18.0-39.1); MEAN CORPUSCULAR HEMOGLOBIN 31.4 pg (28-32); MEAN CORPUSCULAR HGB CONC 31.5 g/dL (31-35); MEAN CORPUSCULAR VOLUME 99.7 fL (81-99); MONOCYTES # (AUTO) 1.2 (0.2-0.8); MONOCYTES % 8.4 % (4.4-11.3); NEUTROPHILS % 85.2 % (38.7-80.0); PLATELET COUNT 116 x10e3/uL (140-360); RED BLOOD COUNT 3.69 x10e6/uL (3.6-5.1); RED CELL DISTRIBUTION WIDTH 13.4 % (11.7-14.4); WHITE BLOOD COUNT 14.09 x10e3/uL (4.8-10.8)
[2023-08-20 08:14] LABS: ALBUMIN 2.4 g/dL (3.5-5.0); ALBUMIN/GLOBULIN RATIO 0.7 (0.8-2.0); ANION GAP 15.2 mmol/L (8-16); BILIRUBIN,TOTAL 0.7 mg/dL (0.2-1.2); CALCIUM 8.7 mg/dL (8.4-10.2); CREATININE, SERUM 1.64 mg/dL (0.57-1.11); POTASSIUM 4.2 mmol/L (3.5-5.1)
[2023-08-20] MEDS ORDERED: NON-FORMULARY MEDICATION (Ranitidine Hcl 300 MG) PO SCH (09:00)
[2023-08-20 09:19] LABS: TROPONIN I 0.02 ng/mL (0-0.300)
[2023-08-20] MEDS: FAMOTIDINE 20 MG TAB PO SCH (09:32)
[2023-08-20] MEDS ORDERED: DORZOLAMIDE HCL10 ML OP (12:08)
[2023-08-20] MEDS: ENOXAPARIN SOD INJ 40 MG/0.4 ML SYR SC SCH (17:56)
[2023-08-20] MEDS: MELATONIN 3 MG TAB PO PRN (21:28)
[2023-08-21] VITALS (35 sets, daily range): BP systolic 71–129; BP diastolic 42–65; PULSE 50–67; RESP 17–27; TEMP 98–98.6; O2SAT 96–100
[2023-08-21 06:58] LABS: ANION GAP 13.3 mmol/L (8-16); CALCIUM 8.4 mg/dL (8.4-10.2); CREATININE, SERUM 1.62 mg/dL (0.57-1.11); POTASSIUM 4.3 mmol/L (3.5-5.1)
[2023-08-21 08:53] LABS: BASOPHILS % 0.2 % (0.0-1.0); EOSINOPHILS # (AUTO) 0.1 (0.0-0.4); EOSINOPHILS % 0.7 % (0.0-6.0); HEMATOCRIT 34.3 % (34.2-44.1); HEMOGLOBIN 10.7 g/dL (12.0-16.0); LYMPHOCYTES # (AUTO) 0.6 (1.0-3.2); LYMPHOCYTES % 5.2 % (18.0-39.1); MEAN CORPUSCULAR HEMOGLOBIN 30.7 pg (28-32); MEAN CORPUSCULAR HGB CONC 31.2 g/dL (31-35); MEAN CORPUSCULAR VOLUME 98.3 fL (81-99); MONOCYTES # (AUTO) 1.1 (0.2-0.8); MONOCYTES % 9.4 % (4.4-11.3); NEUTROPHILS # (AUTO) 9.4 (2.1-6.9); NEUTROPHILS % 83.6 % (38.7-80.0); PLATELET COUNT 121 x10e3/uL (140-360); RED BLOOD COUNT 3.49 x10e6/uL (3.6-5.1); RED CELL DISTRIBUTION WIDTH 13.2 % (11.7-14.4); WHITE BLOOD COUNT 11.26 x10e3/uL (4.8-10.8)
[2023-08-21] MEDS: BRIMONIDINE TARTRATE 0.15% OPTH DRPS 10ML BTL OP SCH (20:36)
[2023-08-21] MEDS: BIMATOPROST(OPTH) 2.5 ML BOTTLE OP SCH (20:36)
[2023-08-21] MEDS: GUAIFENESIN/DEXTROMETHORPHAN LIQD 5 ML UDC NG SCH (23:42)
[2023-08-22] VITALS (82 sets, daily range): BP systolic 63–106; BP diastolic 34–87; PULSE 50–199; RESP 15–29; TEMP 97.8–99.8; O2SAT 92–100
[2023-08-22] MEDS: SODIUM CHLORIDE 0.9% 1000ML 1,000 ML ONE (02:00)
[2023-08-22] MEDS: DORZOLAMIDE HCL (OPTH) 10 ML BOTTLE OP SCH (08:10)
[2023-08-22] MEDS ORDERED: SODIUM CHLORIDE 0.9% 1000ML 1,000 ML IV SCH (09:15)
[2023-08-22] MEDS: MUPIROCIN 2% OINT 22 GM TUBE TOP SCH ×2 (09:26→09:45)
[2023-08-22] MEDS: SODIUM CHLORIDE 0.9% 1000ML 1,000 ML IV SCH (09:26)
[2023-08-22 10:31] LABS: BASOPHILS % 0.1 % (0.0-1.0); EOSINOPHILS # (AUTO) 0.1 (0.0-0.4); HEMATOCRIT 32.1 % (34.2-44.1); HEMOGLOBIN 9.8 g/dL (12.0-16.0); LYMPHOCYTES # (AUTO) 0.6 (1.0-3.2); LYMPHOCYTES % 7.2 % (18.0-39.1); MEAN CORPUSCULAR HEMOGLOBIN 30.6 pg (28-32); MEAN CORPUSCULAR HGB CONC 30.5 g/dL (31-35); MEAN CORPUSCULAR VOLUME 100.3 fL (81-99); MONOCYTES # (AUTO) 0.7 (0.2-0.8); MONOCYTES % 8.7 % (4.4-11.3); NEUTROPHILS # (AUTO) 6.4 (2.1-6.9); PLATELET COUNT 138 x10e3/uL (140-360); RED CELL DISTRIBUTION WIDTH 13.3 % (11.7-14.4); WHITE BLOOD COUNT 7.81 x10e3/uL (4.8-10.8)
[2023-08-22] MEDS: NOREPINEPHRINE 8 MG/D5W 250 ML 250 ML IV SCH (11:00)
[2023-08-22 11:04] LABS: ANION GAP 12.3 mmol/L (8-16); CALCIUM 8.4 mg/dL (8.4-10.2); CREATININE, SERUM 1.32 mg/dL (0.57-1.11); MAGNESIUM 1.7 MG/DL (1.3-2.1); PHOSPHORUS 3.2 MG/DL (2.3-4.7); POTASSIUM 4.3 mmol/L (3.5-5.1)
[2023-08-22] MEDS: BRIMONIDINE TARTRATE 0.15% OPTH DRPS 10ML BTL OP SCH (22:04)
[2023-08-22] MEDS: GUAIFENESIN/DEXTROMETHORPHAN LIQD 5 ML UDC PO SCH (22:04)
[2023-08-23] VITALS (96 sets, daily range): BP systolic 47–121; BP diastolic 32–87; PULSE 53–163; RESP 11–29; TEMP 98–99.2; O2SAT 90–100
[2023-08-23 06:13] LABS: BASOPHILS % 0.3 % (0.0-1.0); EOSINOPHILS # (AUTO) 0.2 (0.0-0.4); EOSINOPHILS % 1.5 % (0.0-6.0); HEMATOCRIT 33.1 % (34.2-44.1); HEMOGLOBIN 10.2 g/dL (12.0-16.0); LYMPHOCYTES # (AUTO) 0.6 (1.0-3.2); LYMPHOCYTES % 5.8 % (18.0-39.1); MEAN CORPUSCULAR HEMOGLOBIN 30.3 pg (28-32); MEAN CORPUSCULAR HGB CONC 30.8 g/dL (31-35); MEAN CORPUSCULAR VOLUME 98.2 fL (81-99); MONOCYTES # (AUTO) 0.9 (0.2-0.8); MONOCYTES % 8.6 % (4.4-11.3); NEUTROPHILS # (AUTO) 8.9 (2.1-6.9); NEUTROPHILS % 82.1 % (38.7-80.0); PLATELET COUNT 179 x10e3/uL (140-360); RED BLOOD COUNT 3.37 x10e6/uL (3.6-5.1); RED CELL DISTRIBUTION WIDTH 13.2 % (11.7-14.4); WHITE BLOOD COUNT 10.82 x10e3/uL (4.8-10.8)
[2023-08-23 06:47] LABS: ALBUMIN 1.9 g/dL (3.5-5.0); ALBUMIN/GLOBULIN RATIO 0.5 (0.8-2.0); ANION GAP 10.7 mmol/L (8-16); BILIRUBIN,TOTAL 0.3 mg/dL (0.2-1.2); CALCIUM 8.7 mg/dL (8.4-10.2); CREATININE, SERUM 1.29 mg/dL (0.57-1.11); POTASSIUM 4.7 mmol/L (3.5-5.1); TOTAL PROTEIN 5.5 g/dL (6.5-8.1)
[2023-08-23] MEDS ORDERED: AMIODARONE HCL 150 MG/100 ML BAG IV ONE (18:15)
[2023-08-23] MEDS: ADENOSINE 6 MG/2 ML VIAL IV ONE ×2 (18:23)
[2023-08-23] MEDS: AMIODARONE HCL 100 ML IV SCH (18:25)
[2023-08-23] MEDS: AMIODARONE 900MG 500 ML IV SCH (18:26)
[2023-08-24] VITALS (58 sets, daily range): BP systolic 70–140; BP diastolic 36–94; PULSE 42–162; RESP 13–29; TEMP 97.7–98.1; O2SAT 80–100
[2023-08-24] MEDS: AMIODARONE HCL 100 ML IV ONE (01:47)
[2023-08-24] MEDS: AMIODARONE 900MG 500 ML IV ONE (01:47)
[2023-08-24 07:07] LABS: BASOPHILS # (AUTO) 0.1 (0.0-0.1); BASOPHILS % 0.3 % (0.0-1.0); EOSINOPHILS # (AUTO) 0.3 (0.0-0.4); EOSINOPHILS % 1.8 % (0.0-6.0); HEMATOCRIT 34.6 % (34.2-44.1); HEMOGLOBIN 10.8 g/dL (12.0-16.0); LYMPHOCYTES # (AUTO) 1.2 (1.0-3.2); MEAN CORPUSCULAR HEMOGLOBIN 30.3 pg (28-32); MEAN CORPUSCULAR HGB CONC 31.2 g/dL (31-35); MEAN CORPUSCULAR VOLUME 96.9 fL (81-99); MONOCYTES # (AUTO) 1.3 (0.2-0.8); MONOCYTES % 8.8 % (4.4-11.3); NEUTROPHILS # (AUTO) 11.4 (2.1-6.9); NEUTROPHILS % 76.7 % (38.7-80.0); PLATELET COUNT 226 x10e3/uL (140-360); RED BLOOD COUNT 3.57 x10e6/uL (3.6-5.1); RED CELL DISTRIBUTION WIDTH 13.2 % (11.7-14.4); WHITE BLOOD COUNT 14.91 x10e3/uL (4.8-10.8)
[2023-08-24 07:34] LABS: ALBUMIN 2.2 g/dL (3.5-5.0); ALBUMIN/GLOBULIN RATIO 0.7 (0.8-2.0); ANION GAP 10.6 mmol/L (8-16); BILIRUBIN,TOTAL 0.3 mg/dL (0.2-1.2); CALCIUM 9.1 mg/dL (8.4-10.2); CREATININE, SERUM 1.33 mg/dL (0.57-1.11); POTASSIUM 4.6 mmol/L (3.5-5.1); TOTAL PROTEIN 5.5 g/dL (6.5-8.1)
[2023-08-24] MEDS: FUROSEMIDE INJ 10 MG/ML 4 ML VIAL IV ONE (09:17)
[2023-08-24] MEDS: DIGOXIN INJ 0.25 MG/ML 2 ML AMP IV ONE (12:11)
[2023-08-24] MEDS: AMIODARONE 900MG 500 ML IV SCH (13:15)
[2023-08-24] MEDS: MIDODRINE HCL 5 MG TABLET PO SCH (15:42)
[2023-08-24] MEDS: PHENYLEPHRINE 10MG/ML VIAL 40 MG in DEXTROSE 5% 250ML 246 ML IV SCH (15:59)
[2023-08-24] MEDS: AMIODARONE HCL 200 MG TAB PO SCH (18:01)
[2023-08-24] MEDS: ENOXAPARIN SOD INJ 60 MG/0.6 ML SYR SC ONE (19:53)
[2023-08-25] VITALS (62 sets, daily range): BP systolic 102–158; BP diastolic 27–102; PULSE 41–70; RESP 15–33; TEMP 97.7–99.1; O2SAT 94–100
[2023-08-25 06:51] LABS: BASOPHILS # (AUTO) 0.1 (0.0-0.1); BASOPHILS % 0.8 % (0.0-1.0); EOSINOPHILS # (AUTO) 0.3 (0.0-0.4); EOSINOPHILS % 2.5 % (0.0-6.0); HEMATOCRIT 25.3 % (34.2-44.1); LYMPHOCYTES # (AUTO) 1.4 (1.0-3.2); LYMPHOCYTES % 10.1 % (18.0-39.1); MEAN CORPUSCULAR HEMOGLOBIN 30.8 pg (28-32); MEAN CORPUSCULAR HGB CONC 31.6 g/dL (31-35); MEAN CORPUSCULAR VOLUME 97.3 fL (81-99); MONOCYTES # (AUTO) 1.2 (0.2-0.8); MONOCYTES % 9.1 % (4.4-11.3); NEUTROPHILS # (AUTO) 9.6 (2.1-6.9); NEUTROPHILS % 71.9 % (38.7-80.0); PLATELET COUNT 203 x10e3/uL (140-360); RED CELL DISTRIBUTION WIDTH 13.7 % (11.7-14.4); WHITE BLOOD COUNT 13.32 x10e3/uL (4.8-10.8)
[2023-08-25 07:44] LABS: ALBUMIN/GLOBULIN RATIO 0.8 (0.8-2.0); BILIRUBIN,TOTAL 0.2 mg/dL (0.2-1.2); CALCIUM 8.7 mg/dL (8.4-10.2); CREATININE, SERUM 1.26 mg/dL (0.57-1.11); TOTAL PROTEIN 4.6 g/dL (6.5-8.1)
[2023-08-25] MEDS: ACETAMINOPHEN 325 MG TAB PO PRN (09:44)
[2023-08-25] MEDS: ENOXAPARIN SODIUM INJ 100 MG/ML SYR SC SCH (09:48)
[2023-08-25] MEDS ORDERED: [UNRECOGNIZED DRUG - OTHER] TOP (17:27)
[2023-08-25] MEDS ORDERED: VOLTAREN ARTHRI20 GM TOP (19:37)
[2023-08-25] MEDS ORDERED: DICLOFENAC SOD 1% GEL 100 GM TUBE TP PRN (19:45)
[2023-08-26] VITALS (57 sets, daily range): BP systolic 42–152; BP diastolic 28–123; PULSE 45–65; RESP 16–29; TEMP 97.5–98.2; O2SAT 91–100
[2023-08-26] MEDS: PHENYLEPHRINE HCL IN 0.9% NACL 250 ML IV ONE (08:31)
[2023-08-26] MEDS ORDERED: MAGNESIUM HYDROXIDE 30 ML UDC PO PRN (09:15)
[2023-08-26] MEDS: LIDOCAINE 4% PATCH TP SCH (09:41)
[2023-08-27] VITALS (64 sets, daily range): BP systolic 69–140; BP diastolic 34–110; PULSE 43–64; RESP 14–25; TEMP 97.6–98.4; O2SAT 81–100
[2023-08-27 06:46] LABS: BASOPHILS % 0.3 % (0.0-1.0); EOSINOPHILS # (AUTO) 0.2 (0.0-0.4); EOSINOPHILS % 1.5 % (0.0-6.0); HEMATOCRIT 21.9 % (34.2-44.1); HEMOGLOBIN 6.8 g/dL (12.0-16.0); MEAN CORPUSCULAR HEMOGLOBIN 30.4 pg (28-32); MEAN CORPUSCULAR HGB CONC 31.1 g/dL (31-35); MEAN CORPUSCULAR VOLUME 97.8 fL (81-99); MONOCYTES # (AUTO) 0.7 (0.2-0.8); MONOCYTES % 6.2 % (4.4-11.3); NEUTROPHILS # (AUTO) 9.1 (2.1-6.9); PLATELET COUNT 199 x10e3/uL (140-360); RED BLOOD COUNT 2.24 x10e6/uL (3.6-5.1); RED CELL DISTRIBUTION WIDTH 13.9 % (11.7-14.4); WHITE BLOOD COUNT 11.39 x10e3/uL (4.8-10.8)
[2023-08-27 07:02] LABS: CALCIUM 8.9 mg/dL (8.4-10.2); CREATININE, SERUM 1.12 mg/dL (0.57-1.11); MAGNESIUM 1.9 MG/DL (1.3-2.1); PHOSPHORUS 2.4 MG/DL (2.3-4.7)
[2023-08-27] MEDS: POLYETHYLENE GLYCOL 3350 17 GM PACK PO SCH (09:00)
[2023-08-27] MEDS: SODIUM CHLORIDE 0.9% 250ML 250 ML IV ONE (13:22)
[2023-08-28] VITALS (69 sets, daily range): BP systolic 81–185; BP diastolic 43–164; PULSE 42–60; RESP 15–25; TEMP 97.7–98.4; O2SAT 89–100
[2023-08-28 07:03] LABS: BASOPHILS # (AUTO) 0.1 (0.0-0.1); BASOPHILS % 0.6 % (0.0-1.0); EOSINOPHILS # (AUTO) 0.2 (0.0-0.4); EOSINOPHILS % 1.5 % (0.0-6.0); HEMATOCRIT 26.3 % (34.2-44.1); HEMOGLOBIN 8.3 g/dL (12.0-16.0); LYMPHOCYTES # (AUTO) 1.4 (1.0-3.2); LYMPHOCYTES % 9.5 % (18.0-39.1); MEAN CORPUSCULAR HEMOGLOBIN 29.9 pg (28-32); MEAN CORPUSCULAR HGB CONC 31.6 g/dL (31-35); MEAN CORPUSCULAR VOLUME 94.6 fL (81-99); MONOCYTES # (AUTO) 0.7 (0.2-0.8); MONOCYTES % 5.1 % (4.4-11.3); NEUTROPHILS % 75.9 % (38.7-80.0); PLATELET COUNT 235 x10e3/uL (140-360); RED BLOOD COUNT 2.78 x10e6/uL (3.6-5.1); RED CELL DISTRIBUTION WIDTH 16.8 % (11.7-14.4); WHITE BLOOD COUNT 14.47 x10e3/uL (4.8-10.8)
[2023-08-28 07:28] LABS: ALBUMIN 2.2 g/dL (3.5-5.0); ALBUMIN/GLOBULIN RATIO 0.7 (0.8-2.0); ANION GAP 12.6 mmol/L (8-16); BILIRUBIN,TOTAL 0.5 mg/dL (0.2-1.2); CALCIUM 9.1 mg/dL (8.4-10.2); CREATININE, SERUM 1.16 mg/dL (0.57-1.11); MAGNESIUM 1.9 MG/DL (1.3-2.1); PHOSPHORUS 2.7 MG/DL (2.3-4.7); POTASSIUM 4.6 mmol/L (3.5-5.1); TOTAL PROTEIN 5.5 g/dL (6.5-8.1)
[2023-08-28] MEDS: MIDODRINE HCL 5 MG TABLET PO SCH (08:43)
[2023-08-28] MEDS: AMIODARONE HCL 200 MG TAB PO SCH (08:44)
[2023-08-28] MEDS: BALSAM PERU/CASTOR OIL 60 GM OINT...G. TP SCH (08:46)
[2023-08-29] VITALS (76 sets, daily range): BP systolic 87–169; BP diastolic 39–130; PULSE 37–57; RESP 13–30; TEMP 97.9–98.6; O2SAT 95–100
[2023-08-29 06:22] LABS: BASOPHILS # (AUTO) 0.1 (0.0-0.1); BASOPHILS % 0.6 % (0.0-1.0); EOSINOPHILS # (AUTO) 0.2 (0.0-0.4); EOSINOPHILS % 1.8 % (0.0-6.0); HEMATOCRIT 26.4 % (34.2-44.1); HEMOGLOBIN 8.2 g/dL (12.0-16.0); LYMPHOCYTES # (AUTO) 1.4 (1.0-3.2); MEAN CORPUSCULAR HEMOGLOBIN 29.8 pg (28-32); MEAN CORPUSCULAR HGB CONC 31.1 g/dL (31-35); MONOCYTES # (AUTO) 0.5 (0.2-0.8); MONOCYTES % 4.3 % (4.4-11.3); NEUTROPHILS # (AUTO) 8.9 (2.1-6.9); NEUTROPHILS % 75.9 % (38.7-80.0); PLATELET COUNT 213 x10e3/uL (140-360); RED BLOOD COUNT 2.75 x10e6/uL (3.6-5.1); RED CELL DISTRIBUTION WIDTH 15.9 % (11.7-14.4)
[2023-08-29 06:42] LABS: ALBUMIN 2.3 g/dL (3.5-5.0); ALBUMIN/GLOBULIN RATIO 0.7 (0.8-2.0); ANION GAP 11.6 mmol/L (8-16); BILIRUBIN,TOTAL 0.5 mg/dL (0.2-1.2); CALCIUM 9.2 mg/dL (8.4-10.2); CREATININE, SERUM 1.08 mg/dL (0.57-1.11); POTASSIUM 4.6 mmol/L (3.5-5.1); TOTAL PROTEIN 5.6 g/dL (6.5-8.1)
[2023-08-29] MEDS: DOCUSATE SODIUM 100 MG CAP PO PRN (09:24)
[2023-08-29] MEDS: BALSAM PERU/CASTOR OIL 60 GM OINT...G. TP SCH (09:27)
[2023-08-29] MEDS: MIDODRINE HCL 5 MG TABLET PO SCH (14:23)
[2023-08-29 16:31] LABS: BASOPHILS # (AUTO) 0.1 (0.0-0.1); BASOPHILS % 0.4 % (0.0-1.0); EOSINOPHILS # (AUTO) 0.2 (0.0-0.4); EOSINOPHILS % 1.4 % (0.0-6.0); HEMATOCRIT 26.8 % (34.2-44.1); HEMOGLOBIN 8.3 g/dL (12.0-16.0); LYMPHOCYTES # (AUTO) 0.7 (1.0-3.2); LYMPHOCYTES % 5.6 % (18.0-39.1); MEAN CORPUSCULAR HEMOGLOBIN 29.9 pg (28-32); MEAN CORPUSCULAR VOLUME 96.4 fL (81-99); MONOCYTES # (AUTO) 0.6 (0.2-0.8); MONOCYTES % 4.7 % (4.4-11.3); NEUTROPHILS # (AUTO) 10.7 (2.1-6.9); NEUTROPHILS % 82.6 % (38.7-80.0); PLATELET COUNT 211 x10e3/uL (140-360); RED BLOOD COUNT 2.78 x10e6/uL (3.6-5.1); RED CELL DISTRIBUTION WIDTH 15.9 % (11.7-14.4); WHITE BLOOD COUNT 12.92 x10e3/uL (4.8-10.8)
[2023-08-29 17:29] LABS: LYMPHOCYTES % (MANUAL) 2 % (19-48); MONOCYTES % (MANUAL) 4 % (3.4-9.0); NEUTROPHILS % (MANUAL) 87 % (40-74)
[2023-08-29 17:30] LABS: BAND NEUTROPHILS % (MANUAL) 4 %; HYPOCHROMASIA SLIGHT; METAMYELOCYTES % (MANUAL) 1 % (0-0); MYELOCYTES % (MANUAL) 2 % (0-0); NUCLEATED RED BLOOD CELLS 2; PLATELET ESTIMATE ADEQUATE; PLATELET MORPHOLOGY COMMENT NORMAL
[2023-08-30] VITALS (61 sets, daily range): BP systolic 88–143; BP diastolic 33–107; PULSE 37–61; RESP 14–28; TEMP 97.6–98.3; O2SAT 94–100
[2023-08-30 00:39] LABS: PROTHROMBIN TIME 13.9 seconds (11.9-14.5)
[2023-08-30 05:58] LABS: BASOPHILS % 0.4 % (0.0-1.0); EOSINOPHILS # (AUTO) 0.2 (0.0-0.4); EOSINOPHILS % 1.7 % (0.0-6.0); HEMATOCRIT 24.8 % (34.2-44.1); HEMOGLOBIN 7.6 g/dL (12.0-16.0); LYMPHOCYTES % 8.8 % (18.0-39.1); MEAN CORPUSCULAR HEMOGLOBIN 29.8 pg (28-32); MEAN CORPUSCULAR HGB CONC 30.6 g/dL (31-35); MEAN CORPUSCULAR VOLUME 97.3 fL (81-99); MONOCYTES # (AUTO) 0.5 (0.2-0.8); MONOCYTES % 4.9 % (4.4-11.3); NEUTROPHILS # (AUTO) 8.8 (2.1-6.9); NEUTROPHILS % 80.5 % (38.7-80.0); PLATELET COUNT 215 x10e3/uL (140-360); RED BLOOD COUNT 2.55 x10e6/uL (3.6-5.1); WHITE BLOOD COUNT 10.86 x10e3/uL (4.8-10.8)
[2023-08-30 06:18] LABS: ALBUMIN 2.2 g/dL (3.5-5.0); ALBUMIN/GLOBULIN RATIO 0.8 (0.8-2.0); BILIRUBIN,TOTAL 0.4 mg/dL (0.2-1.2); CALCIUM 8.7 mg/dL (8.4-10.2); CREATININE, SERUM 1.13 mg/dL (0.57-1.11); TOTAL PROTEIN 5.1 g/dL (6.5-8.1)
[2023-08-30 06:37] LABS: % IRON SATURATION 17 % (15-50); IRON 43 ug/dL (50-170); TOTAL IRON BINDING CAPACITY 258 ug/dL (261-478); TRANSFERRIN 184 mg/dL (180-382)
[2023-08-30 06:51] LABS: FOLATE 6.9 ng/mL (7.0-15.4)
[2023-08-30 20:16] LABS: HEMATOCRIT 26.8 % (34.2-44.1); HEMOGLOBIN 8.2 g/dL (12.0-16.0)
[2023-08-31] VITALS (17 sets, daily range): BP systolic 127–175; BP diastolic 41–105; PULSE 29–68; RESP 16–20; TEMP 97.6–98.3; O2SAT 95–100
[2023-08-31] MEDS: CYANOCOBALAMIN INJ 1,000 MCG/ML VIAL IM ONE (02:39)
[2023-08-31] MEDS: IRON SUCROSE 100 MG in SODIUM CHLORIDE 0.9% 100 ML IV SCH (05:29)
[2023-08-31 07:08] LABS: ANION GAP 10.1 mmol/L (8-16); CALCIUM 8.7 mg/dL (8.4-10.2); CREATININE, SERUM 1.17 mg/dL (0.57-1.11); POTASSIUM 5.1 mmol/L (3.5-5.1)
[2023-08-31] MEDS ORDERED: ZOLPIDEM TARTRATE 5 MG TAB PO PRN (07:45)
[2023-08-31 07:59] LABS: BASOPHILS # (AUTO) 0.1 (0.0-0.1); BASOPHILS % 0.4 % (0.0-1.0); EOSINOPHILS # (AUTO) 0.2 (0.0-0.4); EOSINOPHILS % 1.6 % (0.0-6.0); HEMATOCRIT 25.5 % (34.2-44.1); HEMOGLOBIN 7.8 g/dL (12.0-16.0); LYMPHOCYTES % 7.7 % (18.0-39.1); MEAN CORPUSCULAR HEMOGLOBIN 30.1 pg (28-32); MEAN CORPUSCULAR HGB CONC 30.6 g/dL (31-35); MEAN CORPUSCULAR VOLUME 98.5 fL (81-99); MONOCYTES # (AUTO) 0.6 (0.2-0.8); MONOCYTES % 4.7 % (4.4-11.3); NEUTROPHILS # (AUTO) 10.8 (2.1-6.9); NEUTROPHILS % 83.2 % (38.7-80.0); PLATELET COUNT 243 x10e3/uL (140-360); RED BLOOD COUNT 2.59 x10e6/uL (3.6-5.1); RED CELL DISTRIBUTION WIDTH 16.5 % (11.7-14.4); WHITE BLOOD COUNT 12.94 x10e3/uL (4.8-10.8)
[2023-08-31] MEDS: LOPERAMIDE HCL 2 MG CAP PO PRN (08:24)
[2023-08-31] MEDS: FOLIC ACID 1 MG TAB PO SCH (08:25)
[2023-08-31] MEDS: CYANOCOBALAMIN INJ 1,000 MCG/ML VIAL IM SCH (08:25)
[2023-08-31] MEDS: AMIODARONE HCL 200 MG TAB PO SCH (08:25)
[2023-08-31] MEDS ORDERED: ONDANSETRON HCL 4 MG ORAL DISINTEGRATING TAB PO PRN (11:45)
[2023-09-01] VITALS (7 sets, daily range): BP systolic 121–142; BP diastolic 46–67; PULSE 51–93; RESP 18–20; TEMP 97.6–98.6; O2SAT 92–100
[2023-09-01] MEDS ORDERED: AMIODARONE HCL 200 MG TAB PO SCH (09:00)
[2023-09-01 14:49] LABS: BASOPHILS % 0.3 % (0.0-1.0); EOSINOPHILS # (AUTO) 0.3 (0.0-0.4); EOSINOPHILS % 2.2 % (0.0-6.0); HEMATOCRIT 26.9 % (34.2-44.1); HEMOGLOBIN 8.1 g/dL (12.0-16.0); LYMPHOCYTES # (AUTO) 1.2 (1.0-3.2); LYMPHOCYTES % 9.5 % (18.0-39.1); MEAN CORPUSCULAR HGB CONC 30.1 g/dL (31-35); MEAN CORPUSCULAR VOLUME 99.6 fL (81-99); MONOCYTES # (AUTO) 0.7 (0.2-0.8); MONOCYTES % 5.5 % (4.4-11.3); NEUTROPHILS # (AUTO) 10.4 (2.1-6.9); NEUTROPHILS % 80.8 % (38.7-80.0); PLATELET COUNT 243 x10e3/uL (140-360)
[2023-09-02] VITALS (11 sets, daily range): BP systolic 132–166; BP diastolic 51–63; PULSE 51–67; RESP 16–20; TEMP 97.6–98.6; O2SAT 92–100
[2023-09-02 06:25] LABS: BASOPHILS % 0.1 % (0.0-1.0); EOSINOPHILS # (AUTO) 0.2 (0.0-0.4); EOSINOPHILS % 1.9 % (0.0-6.0); HEMATOCRIT 26.5 % (34.2-44.1); HEMOGLOBIN 7.9 g/dL (12.0-16.0); LYMPHOCYTES # (AUTO) 1.1 (1.0-3.2); LYMPHOCYTES % 10.4 % (18.0-39.1); MEAN CORPUSCULAR HGB CONC 29.8 g/dL (31-35); MEAN CORPUSCULAR VOLUME 100.8 fL (81-99); MONOCYTES # (AUTO) 0.7 (0.2-0.8); NEUTROPHILS # (AUTO) 8.7 (2.1-6.9); NEUTROPHILS % 79.7 % (38.7-80.0); PLATELET COUNT 222 x10e3/uL (140-360); RED BLOOD COUNT 2.63 x10e6/uL (3.6-5.1); WHITE BLOOD COUNT 10.87 x10e3/uL (4.8-10.8)
[2023-09-02 07:04] LABS: CALCIUM 8.7 mg/dL (8.4-10.2); CREATININE, SERUM 1.26 mg/dL (0.57-1.11)
[2023-09-03] VITALS (8 sets, daily range): BP systolic 97–156; BP diastolic 52–83; PULSE 52–74; RESP 14–21; TEMP 97.8–98.4; O2SAT 92–100
[2023-09-03] MEDS: IRON SUCROSE 100 MG in SODIUM CHLORIDE 0.9% 100 ML IV SCH (09:30)
[2023-09-04] VITALS (7 sets, daily range): BP systolic 102–128; BP diastolic 47–59; PULSE 56–82; RESP 16–22; TEMP 98.4–99.6; O2SAT 94–99
[2023-09-04] MEDS ORDERED: CARAFATE1 GM/10 ML PO (11:13)
[2023-09-04] MEDS ORDERED: PROTONIX20 MG PO (11:13)
== END 2023-09-04 18:42 | disposition home health service (06) | DRG 871 ==
LOC: ER 18:59 → ERHOLD 08-19 00:18 → ICU 08-19 15:57 → MED/SURG3 08-31 09:26
PROVIDERS: ADMIT Internal Medicine; ATTEND Internal Medicine
PROC: 3E0333Z Introduction of Anti-inflammatory into Peripheral Vein, Percutaneous Approach (ICD-10-PCS; 2023-08-18)
PROC: 02HV33Z Insertion of Infusion Device into Superior Vena Cava, Percutaneous Approach (ICD-10-PCS; principal; 2023-08-22)
PROC: 3E033XZ Introduction of Vasopressor into Peripheral Vein, Percutaneous Approach (ICD-10-PCS; 2023-08-22)
DX: A41.51 Sepsis due to Escherichia coli [E. coli] (principal); R65.21 Severe sepsis with septic shock; E87.20 Acidosis, unspecified; N17.9 Acute kidney failure, unspecified; I13.0 Hypertensive heart and chronic kidney disease with heart failure and stage 1 through stage 4 chronic kidney disease, or unspecified chronic kidney disease; K92.2 Gastrointestinal hemorrhage, unspecified; I47.10 Supraventricular tachycardia, unspecified; I50.32 Chronic diastolic (congestive) heart failure; N39.0 Urinary tract infection, site not specified; Z16.12 Extended spectrum beta lactamase (ESBL) resistance; Z68.42 Body mass index [BMI] 45.0-49.9, adult; D69.6 Thrombocytopenia, unspecified; N18.9 Chronic kidney disease, unspecified; D63.1 Anemia in chronic kidney disease; D50.0 Iron deficiency anemia secondary to blood loss (chronic); Z11.52 Encounter for screening for COVID-19; E66.01 Morbid (severe) obesity due to excess calories; E89.0 Postprocedural hypothyroidism; K21.9 Gastro-esophageal reflux disease without esophagitis; I48.0 Paroxysmal atrial fibrillation; R53.81 Other malaise; M19.90 Unspecified osteoarthritis, unspecified site; M54.50 Low back pain, unspecified; Z79.890 Hormone replacement therapy; Z90.49 Acquired absence of other specified parts of digestive tract; Z82.49 Family history of ischemic heart disease and other diseases of the circulatory system
CPT/HCPCS: 36415; 71045; 80048; 80053; 80061; 81001; 82270; 82550; 82607; 82746; 83036; 83540; 83605; 83735; 84100; 84443; 84466; 84484; 85014; 85018; 85025; 85045; 85610; 86850; 86900; 86920; 87040; 87071; 87086; 87186; 87205; 87400; 87420; 93005; 93306; 94799; 99252; 99284; 99285; J0153; J0696; J1160; J1650; J1756; J1940; J2185; J2371; J2470; J3420; J7030; J7050; P9016; U0002